=== PATIENT | female | born 1985 | race Two or more races ===

== ENCOUNTER 2025-04-08 03:38 | Emergency (ER) | payer MEDICAID, OTHER ==
[~2025-04-08] VITALS: Ht 170.2 cm; Wt 63.0 kg
[2025-04-08 04:23] LABS: BASOPHILS % (AUTO) 0.3 % (0.0-2.0); EOSINOPHILS # (AUTO) 0.1 K/uL (0.0-0.7); EOSINOPHILS % (AUTO) 1.3 % (0.0-6.0); HEMATOCRIT 42 % (33-45); HEMOGLOBIN 13.3 g/dL (11.5-14.8); LYMPHOCYTES # (AUTO) 1.9 K/uL (0.8-4.8); LYMPHOCYTES % (AUTO) 21.9 % (20.0-44.0); MEAN CORPUSCULAR HEMOGLOBIN 28 PG (26.0-33.0); MEAN CORPUSCULAR HGB CONC 32 g/dl (31.0-36.0); MEAN CORPUSCULAR VOLUME 90 fL (82-100); MONOCYTES # (AUTO) 0.6 K/uL (0.1-1.30); MONOCYTES % (AUTO) 6.9 % (2.0-12.0); NEUTROPHILS # (AUTO) 6.1 K/uL (1.8-8.9); NEUTROPHILS % (AUTO) 69.6 % (43.0-81.0); PLATELET COUNT (AUTO) 213 K/uL (150-450); RED BLOOD CELL COUNT(AUTO) 4.69 MIL/uL (4.0-5.2); RED CELL DISTRIBUTION WIDTH 17.4 % (11.5-15.0); WHITE BLOOD COUNT (AUTO) 8.7 K/uL (4.3-11.0)
[2025-04-08 04:30] LABS: CALCIUM, SERUM 8.6 mg/dL (8.5-10.1); CREATININE 0.5 mg/dL (0.6-1.3); POTASSIUM 4.7 mmol/L (3.5-5.1)
[2025-04-08 04:42] LABS: ALBUMIN 3.6 g/dL (3.4-5.0); BILIRUBIN,TOTAL 0.7 mg/dL (0.2-1.0)
[2025-04-08 05:04] LABS: APPEARANCE,URINE CLEAR (CLEAR); BILIRUBIN,URINE NEGATIVE (NEGATIVE); BLOOD, URINE 3+ Ery/uL (NEGATIVE); COLOR,URINE YELLOW (YELLOW); KETONES,URINE NEGATIVE (NEGATIVE); LEUKOCYTE ESTERASE ,URINE NEGATIVE (NEGATIVE); NITRITE, URINE NEGATIVE (NEGATIVE); PREGNANCY TEST URINE QUAL NEGATIVE (NEGATIVE); PROTEIN,URINE NEGATIVE (NEGATIVE); UGLUCOSE NEGATIVE (NEGATIVE); UROBILINOGEN,URINE 0.2 EU/dL (0.2)
[2025-04-08 05:15] LABS: AMPHETAMINE, URINE NEGATIVE (NEGATIVE); BARBITURATE, URINE NEGATIVE (NEGATIVE); BENZODIAZEPINE, URINE NEGATIVE (NEGATIVE); CANNABINOID, URINE NEGATIVE (NEGATIVE); COCCAINE, URINE NEGATIVE (NEGATIVE); OPIATE, URINE NEGATIVE (NEGATIVE); PHENCYCLIDINE SCREEN,URINE NEGATIVE (NEGATIVE)
[2025-04-08 05:19] LABS: SQUAMOUS EPITHELIAL CELL,UR Moderate /HPF (None Seen)
[2025-04-08 05:20] LABS: ADD URINE CULTURE YES; BACTERIA,URINE Moderate /HPF (None Seen)
[2025-04-08] MEDS ORDERED: IOHEXOL-350 100 ML VIAL IV ONE (05:48)
[2025-04-08] MEDS ORDERED: IV NS 0.9% 250 ML IV ONE (05:49)
[2025-04-08] MEDS ORDERED: CT SWABBABLE VALVE TRANS SET 1 EA INFUS.SET MC ONE (05:49)
[2025-04-08] MEDS ORDERED: MAG HYDROX/AL HYDROX/SIMETH 30 ML UDC ONE (06:03)
[2025-04-08] MEDS ORDERED: LIDOCAINE VISCOUS 2% UD 15 ML UDC ONE (06:03)
[2025-04-08] MEDS ORDERED: PANTOPRAZOLE 40 MG VIAL ONE (06:03)
[2025-04-08] MEDS: PANTOPRAZOLE 40 MG VIAL IV ONE (06:06)
[2025-04-08] MEDS: MAG HYDROX/AL HYDROX/SIMETH 30 ML UDC PO ONE (06:07)
[2025-04-08] MEDS: LIDOCAINE VISCOUS 2% UD 15 ML UDC MM ONE (06:07)
[2025-04-08 06:19] LABS: THYROID STIMULATING HORMONE 1.11 uIU/mL (0.358-3.74)
[2025-04-08 06:25] VITALS: BP 152/89; TEMP 98.2; O2SAT 100
== END 2025-04-08 06:26 | disposition home or self-care (01) ==
LOC: ER 03:38
DX: R07.2 Precordial pain (principal); K58.9 Irritable bowel syndrome, unspecified; K21.9 Gastro-esophageal reflux disease without esophagitis; Z79.899 Other long term (current) drug therapy; Z88.0 Allergy status to penicillin
CPT/HCPCS: 36415; 71045-TC; 80053-TC; 80061-TC; 81001; 83880; 84443-TC; 84484-TC; 84703-TC; 85025-TC; 85378-TC; 87086-TC; J2470; J7050; Q9967